=== PATIENT | male | born 1960 | race Asian ===

== ENCOUNTER 2020-01-03 10:02 | Outpatient (CLI) | payer OTHER | END 2020-01-03 10:14 | disposition home or self-care (01) | LOC: RAD 10:02 | PROVIDERS: ATTEND Ophthalmology | DX: H25.12 Age-related nuclear cataract, left eye (principal); Z01.811 Encounter for preprocedural respiratory examination ==

== ENCOUNTER 2020-01-15 13:17 | Outpatient (CLI) | payer OTHER | END 2020-01-15 13:57 | disposition home or self-care (01) | LOC: NUCLEAR 13:17 | PROVIDERS: ATTEND Internal Medicine | DX: M81.0 Age-related osteoporosis without current pathological fracture (principal) ==